=== PATIENT | female | born 1975 | race Caucasian/White ===

== ENCOUNTER → 2019-11-09 | Outpatient (CLI) | payer BC ==
[~2019-11-09] MED LIST: NOHOMEMEDICATIONS; PREDNISONE 20 M20 M1 PO; ZPAK PO
[2019-11-09 13:06] LABS: CREATININE 0.8 mg/dL (0.6-1.3)
== END ==
LOC: M.CT 12:39
PROVIDERS: Nurse Practitioner Family
DX: N83.202 Unspecified ovarian cyst, left side (principal); N83.201 Unspecified ovarian cyst, right side; R30.0 Dysuria; R10.829 Rebound abdominal tenderness, unspecified site

== ENCOUNTER → 2021-05-14 | Outpatient (CLI) | payer BC | LOC: M.RAD 13:30 | PROVIDERS: ATTEND Specialist | DX: Z12.31 Encounter for screening mammogram for malignant neoplasm of breast (principal); N64.89 Other specified disorders of breast ==

== ENCOUNTER → 2021-05-17 | Outpatient (CLI) | payer BC | LOC: M.ULTRA 11:00 | PROVIDERS: ATTEND Specialist | DX: N60.02 Solitary cyst of left breast (principal); N63.11 Unspecified lump in the right breast, upper outer quadrant ==